=== PATIENT | male | born 1980 | race Caucasian/White ===

== ENCOUNTER 2017-04-10 23:45 | Emergency (ER) | payer MEDICAID | END 2017-04-11 00:29 | disposition home or self-care (01) | LOC: D.ER 23:45 | DX: M75.51 Bursitis of right shoulder (principal); F17.200 Nicotine dependence, unspecified, uncomplicated ==

== ENCOUNTER 2018-01-23 11:39 | Emergency (ER) | payer SELFPAY ==
[~2018-01-23] VITALS: Ht 167.6 cm; Wt 84.1 kg
[2018-01-23 11:51] VITALS: Ht 167.6 cm; Wt 84.1 kg
[2018-01-23] MEDS ORDERED: NAPROSYN500 MG PO (16:18)
[2018-01-23] MEDS ORDERED: BACTRIM DS TABL1 TAB PO (16:18)
[2018-01-23 17:11] VITALS: BP 118/74
== END 2018-01-23 17:11 | disposition home or self-care (01) ==
LOC: D.ER 11:39
DX: L03.115 Cellulitis of right lower limb (principal)